=== PATIENT | male | born 1970 | race African-American/Black ===

== ENCOUNTER 2019-06-19 10:00 | Inpatient (IN) | payer OTHER ==
[2019-06-19 10:33] VITALS: BMI 23.9
--- NOTE | 2019-06-19 11:48 | HP ---
CIWA Score Nausea/Vomitin Muscle Tremors: 3 Anxiety: 4-Mod. Anxious/Guarded Agitation: 1-Slight > Activity Paroxysmal Sweats: No Perspiration Orientation: 2-Disoriented Date<2 days Tacttile Disturbances: 2-Mild Itch/Numbness/Burn Auditory Disturbances: 0-None Visual Disturbances: 0-None Headache: 2-Mild CIWA-Ar Total Score: 16 - Admission Criteria OASAS Guidelines: Admission for Medically Managed Detox: Requires at least one of the followin. CIWA greater than 12 2. Seizures within the past 24 hours 3. Delirium tremens within the past 24 hours 4. Hallucinations within the past 24 hours 5. Acute intervention needed for co occurring medical disorder 6. Acute intervention needed for co occurring psychiatric disorder 7. Severe withdrawal that cannot be handled at a lower level of care (continued vomiting, continued diarrhea, abnormal vital signs) requiring intravenous medication and/or fluids 8. Patient presents the following: CIWA greater than 12 Admission Criteria Met: Admission criteria met Admitting History and Physical - Admission History Source: Patient Limitations to Obtaining History: No Limitations - Past Medical History Infectious Disease: Yes: STD's - Smoking History Smoking history: Current every day smoker Have you smoked in the past 12 months: Yes - Alcohol/Substance Use Hx Alcohol Use: Yes History of Substance Use: reports: Cocaine - Social History Usual Living Arrangement: Yes: Other (homeless) Admission ROS [facility] Chief Complaint: I need to make a change, I need to hold onto my money, I lost everything Allergies/Adverse Reactions: Allergies Allergy/AdvReac Type Severity Reaction Status Date / Time No Known Allergies Allergy Verified 06/19/19 10:27 History of Present Illness: 48 yo gentleman here for detox from alcohol - patient states this is the first time he has ever been in treatment. States he has been homeless for fifteen years - staying with various people sometimes, sometimes in retirement, sometimes in street - lost his , job and home. Denies seizures but does have black outs. 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 No emergency visits - came her today through [facility] outreach. We discussed seeing psych while here - he declines - states he wants to be off all drugs before he meets with a psychiatrist, not feeling suciidal. Exam Limitations: No Limitations - Ebola screening Have you traveled outside of the country in the last 21 days: No (N) Have you had contact with anyone from an Ebola affected area: No Do you have a fever: No - Review of Systems Constitutional: Chills, Loss of Appetite, Malaise, Weakness EENT: reports: No Symptoms Reported Respiratory: reports: No Symptoms reported Cardiac: reports: No Symptoms Reported GI: reports: Poor Appetite, Abdominal cramping : reports: Frequency Musculoskeletal: reports: Muscle Pain, Muscle Weakness Integumentary: reports: Dryness Neuro: reports: Headache, Tremors, Weakness Endocrine: reports: No Symptoms Reported Hematology: reports: No Symptoms Reported Psychiatric: reports: Judgement Intact, Mood/Affect Appropiate, Anxious Other Systems: Reviewed and Negative Patient History - Patient Medical History Hx Anemia: Yes (not sure) Hx Asthma: No Hx Chronic Obstructive Pulmonary Disease (COPD): No Hx Cancer: No Hx Cardiac Disorders: No Hx Congestive Heart Failure: No Hx Hypertension: No Hx Hypercholesterolemia: No Hx Pacemaker: No HX Cerebrovascular Accident: No Hx Seizures: No Hx Diabetes: No Hx Gastrointestinal Disorders: No Hx Liver Disease: No Hx Genitourinary Disorders: No Hx Sexually Transmitted Disorders: Yes (hx syphilis - got shots - 30 years ago) Hx Renal Disease (ESRD): No Hx Thyroid Disease: No Hx Human Immunodeficiency Virus (HIV): No Hx Hepatitis C: No Hx Depression: Yes (no meds, hospitalized once many years ago, hx meds years ago but stopped) Hx Suicide Attempt: No Hx Bipolar Disorder: No Hx Schizophrenia: No (? paranoia ) - Patient Surgical History Past Surgical History: No - PPD History Previous Implant?: Yes Documented Results: Negative w/o proof Implanted On Prior R Admission?: No PPD to be Administered?: Yes - Reproductive History Patient is a Female of Child Bearing Age (11 -55 yrs old): No - Smoking Cessation Smoking history: Current every day smoker Have you smoked in the past 12 months: Yes Aproximately how many cigarettes per day: 10 Hx Chewing Tobacco Use: No Initiated information on smoking cessation: Yes 'Breaking Loose' booklet given: 06/19/19 (give on floor) - Substance & Tx. History Hx Alcohol Use: Yes Hx Substance Use: Yes Substance Use Type: Alcohol, Cocaine Hx Substance Use Treatment: No (denies ever having treatment) - Substances abused Alcohol Substance route: Oral Frequency: Daily Amount used: 1 of Scotch Age of first use: 26 Date of last use: 06/18/19 Cocaine Substance route: Inhalation Frequency: Daily Amount used: $300/day Age of first use: 42 Date of last use: 06/18/19 Admission Physical Exam [facility] - Vital Signs Vital Signs: Vital Signs - 24 hr 06/19/19 10:22 Temperature 97.5 F L Pulse Rate 76 Respiratory 16 Rate Blood Pressure 118/67 - Physical General Appearance: Yes: Nourished, Appropriately Dressed, Moderate Distress, Thin, Anxious HEENTM: Yes: EOMI, Hearing grossly Normal, Normocephalic, Normal Voice, Pharynx Normal, Other (missing several teeth) Respiratory: Yes: Normal Breath Sounds, No Respiratory Distress Neck: Yes: No masses,lesions,Nodules Breast: Yes: Breast Exam Deferred Cardiology: Yes: Regular Rhythm, Regular Rate Abdominal: Yes: Flat, Soft Genitourinary: Yes: Frequency Back: Yes: Normal Inspection Musculoskeletal: Yes: full range of Motion, Gait Steady, Muscle weakness Extremities: Yes: Normal Inspection, Normal Range of Motion, Tremors Neurological: Yes: Alert, Normal Mood/Affect, Normal Response Integumentary: Yes: Normal Color, Dry, Warm, Other (healed scar right tibia ( old injury)) Lymphatic: Yes: Within Normal Limits - Diagnostic (1) Alcohol dependence with withdrawal, uncomplicated Current Visit: Yes Status: Acute (2) Cocaine dependence Current Visit: Yes Status: Acute Qualifiers: Substance use status: uncomplicated Qualified Code(s): F14.20 - Cocaine dependence, uncomplicated (3) Nicotine dependence Current Visit: Yes Status: Acute Qualifiers: Nicotine product type: cigarettes Substance use status: uncomplicated Qualified Code(s): F17.210 - Nicotine dependence, cigarettes, uncomplicated (4) Hx of syphilis Current Visit: Yes Status: Suspected Comment: states treated 30 years ago with injections Cleared for Admission [facility] - Detox or Rehab [facility] Level of Care: Medically Managed Detox Regimen/Protocol: Ativan Breathalyzer - Breathalyzer Breathalyzer: 0 Urine Drug Screen - Test Device Lot number: [id number] Expiration date: 02/03/21 - Control Is test valid?: Yes - Results Drug screen NEGATIVE: No Urine drug screen results: KARINA-Cocaine Inpatient Rehab Admission - Rehab Decision to Admit Inpatient rehab admission?: No
[2019-06-19] MEDS ORDERED: MENTHOL/PHENOL 1 EACH UD MM PRN (12:03)
[2019-06-19] MEDS ORDERED: MAGNESIUM CITRATE 300 ML BOTTLE PO PRN (12:03)
[2019-06-19] MEDS ORDERED: LORazepam 1 MG TABLET PO PRN (12:03)
[2019-06-19] MEDS ORDERED: BISMUTH SUBSALICYLATE 524 MG/30 ML UD PO PRN (12:03)
[2019-06-19] MEDS ORDERED: hydrOXYzine PAMOATE 25 MG CAPSULE (FP) PO PRN (12:03)
[2019-06-19] MEDS ORDERED: MELATONIN 5 MG TABLETS PO PRN (12:03)
[2019-06-19] MEDS ORDERED: MAGNESIUM HYDROX 2400MG/30ML ORAL SUSPENSION 30 ML CUP PO PRN (12:03)
[2019-06-19] MEDS ORDERED: IBUPROFEN 400 MG TABLET (FP) PO PRN (12:03)
[2019-06-19] MEDS ORDERED: METHOCARBAMOL 500 MG TABLET PO PRN (12:03)
[2019-06-19] MEDS ORDERED: MAG HYDROX/AL HYDROX/SIMETH 30 ML UNIT-DOSE CUP PO PRN (12:03)
[2019-06-19] MEDS ORDERED: LORazepam 2 MG TABLET PO ONE (12:03)
[2019-06-19] MEDS ORDERED: ACETAMINOPHEN 325 MG TABLET (FP) PO PRN ×2 (12:03)
[2019-06-19] MEDS: LORazepam 2 MG TABLET PO SCH ×2 (17:25→22:35)
[2019-06-19] MEDS: THIAMINE HCL 100 MG TABLET (FP) PO SCH (22:35)
[2019-06-20] MEDS ORDERED: PNEUMOC 13-VAL CONJ-DIP CRM/PF 0.5 ML DISP.SYRIN IM ONE (06:00)
[2019-06-20] MEDS ORDERED: FLU VACCINE QUAD 60 MCG/0.5 ML (MDV 19-20) IM ONE (06:00)
[2019-06-20] MEDS: LORazepam 2 MG TABLET PO SCH ×4 (07:24→22:16)
[2019-06-20] MEDS: NICOTINE POLACRILEX 4 MG GUM BUC PRN (08:03)
--- NOTE | 2019-06-20 10:16 | EKG ---
Test Reason : Blood Pressure : / mmHG Vent. Rate : 060 BPM Atrial Rate : 060 BPM P-R Int : 188 ms QRS Dur : 090 ms QT Int : 408 ms P-R-T Axes : 070 021 004 degrees QTc Int : 408 ms NORMAL SINUS RHYTHM NORMAL ECG NO PREVIOUS ECGS AVAILABLE Confirmed by GLENNA WEEKS, JAMARCUS ([id number]) on 06/20/2019 10:15:34 AM Referred By: Tyrone Pool Confirmed By:JAMARCUS MANZANARES MD
[2019-06-20 11:08] LABS: HEMATOCRIT 40.4 % (35.4-49); HEMOGLOBIN 13.7 GM/dL (11.7-16.9); MCH 31.1 pg (25.7-33.7); MCHC 33.9 g/dl (32.0-35.9); MEAN CELL VOLUME 91.7 fl (80-96); MEAN PLT VOLUME 7.1 fl (7.5-11.1); PLATELET COUNT 451 K/MM3 (134-434); RDW 15.4 % (11.9-15.9); WHITE BLOOD COUNT 7.3 K/mm3 (4.0-10.0)
[2019-06-20 11:19] LABS: ALBUMIN 3.2 g/dl (3.4-5.0); BILIRUBIN,TOTAL 0.4 mg/dL (0.2-1); BLOOD UREA NITROGEN 8.1 mg/dL (7-18); CALCIUM 8.8 mg/dL (8.5-10.1); CREATININE 1.2 mg/dL (0.55-1.3); POTASSIUM 4.3 mmol/L (3.5-5.1); TOT PROT 7.1 g/dl (6.4-8.2)
[2019-06-20 11:25] LABS: PH,URINE 6.5 (5.0-8.0); URINE APPEARANCE CLEAR; URINE BILIRUBIN NEGATIVE (NEGATIVE); URINE COLOR YELLOW; URINE GLUCOSE (UA) NEGATIVE (NEGATIVE); URINE KETONE NEGATIVE (NEGATIVE); URINE LEUK ESTERASE NEGATIVE (NEGATIVE); URINE NITRITE NEGATIVE (NEGATIVE); URINE PROTEIN NEGATIVE (NEGATIVE); URINE UROBILINOGEN 0.2 mg/dL (0.2-1.0)
[2019-06-20] MEDS ORDERED: PNEUMOCOCCAL 23 VACCINE 0.5 ML VIAL IM ONE (12:00)
[2019-06-20] MEDS: PRENATAL VITAMINS W/ FOLIC ACID TABLET (FP) PO SCH (13:08)
--- NOTE | 2019-06-20 15:29 | CONSULT ---
[facility] Psychiatric Consult - Data Date of interview: 06/20/19 Admission source: [facility] Identifying data: Patient refused to see underwriter mortgage loan for psychiatric consultation. Stated " I am tired. Maybe we can talk another time." Please reorder psychiatric consultation if requested by patient.
--- NOTE | 2019-06-20 17:11 | PN ---
[facility] CIWA - CIWA Score Nausea/Vomitin-Mild Nausea/No Vomiting Muscle Tremors: 3 Anxiety: 3 Agitation: 3 Paroxysmal Sweats: 3 Orientation: 0-Oriented Tacttile Disturbances: 0-None Auditory Disturbances: 0-None Visual Disturbances: 0-None Headache: 0-None Present CIWA-Ar Total Score: 13 S Progress Note (SOAP) Subjective: Patient refused to speak with insurance writer Objective: 06/20/19 17:08 Last Vital Signs Temp Pulse Resp BP Pulse Ox 97.3 F L 82 18 116/66 06/20/19 14:27 06/20/19 14:27 06/20/19 14:27 06/20/19 14:27 Laboratory Tests 06/20/19 06/20/19 06/20/19 08:00 08:00 08:00 WBC 7.3 RBC 4.40 Hgb 13.7 Hct 40.4 MCV 91.7 MCH 31.1 MCHC 33.9 RDW 15.4 Plt Count 451 H MPV 7.1 L Sickle Cell Screen Negative Sodium 138 Potassium 4.3 Chloride 104 Carbon Dioxide 27 Anion Gap 8 BUN 8.1 Creatinine 1.2 Est GFR (CKD-EPI)AfAm 83.54 Est GFR (CKD-EPI)NonAf 72.08 Random Glucose 54 L Calcium 8.8 Total Bilirubin 0.4 AST 24 ALT 30 Alkaline Phosphatase 64 Total Protein 7.1 Albumin 3.2 L Urine Color Urine Appearance Urine pH Ur Specific [place] Urine Protein Urine Glucose (UA) Urine Ketones Urine Blood Urine Nitrite Urine Bilirubin Urine Urobilinogen Ur Leukocyte Esterase RPR Titer HIV 1&2 Antibody Screen HIV P24 Antigen 06/20/19 06/20/19 06/20/19 08:00 08:00 08:20 WBC RBC Hgb Hct MCV MCH MCHC RDW Plt Count MPV Sickle Cell Screen Sodium Potassium Chloride Carbon Dioxide Anion Gap BUN Creatinine Est GFR (CKD-EPI)AfAm Est GFR (CKD-EPI)NonAf Random Glucose Calcium Total Bilirubin AST ALT Alkaline Phosphatase Total Protein Albumin Urine Color Yellow Urine Appearance Clear Urine pH 6.5 Ur Specific [place] 1.012 Urine Protein Negative Urine Glucose (UA) Negative Urine Ketones Negative Urine Blood Negative Urine Nitrite Negative Urine Bilirubin Negative Urine Urobilinogen 0.2 Ur Leukocyte Esterase Negative RPR Titer Nonreactive HIV 1&2 Antibody Screen Negative HIV P24 Antigen Negative Labs reviewed: plt 451 (H) Assessment: 06/20/19 17:09 Withdrawal sxs Noted with thrombocytosis Plan: Continue detox Encouraged PO water intake Thrombocytosis: asymptomatic, repeat CBC
[2019-06-20] MEDS: THIAMINE HCL 100 MG TABLET (FP) PO SCH (22:16)
[2019-06-21] MEDS: LORazepam 1 MG TABLET PO SCH ×4 (06:22→22:10)
[2019-06-21] MEDS: PRENATAL VITAMINS W/ FOLIC ACID TABLET (FP) PO SCH (09:58)
--- NOTE | 2019-06-21 12:19 | PN ---
S CIWA - CIWA Score Nausea/Vomitin-No Nausea/No Vomiting Muscle Tremors: 3 Anxiety: 1-Mildly Anxious Agitation: 1-Slight > Activity Paroxysmal Sweats: 2 Orientation: 0-Oriented Tacttile Disturbances: 0-None Auditory Disturbances: 0-None Visual Disturbances: 0-None Headache: 0-None Present CIWA-Ar Total Score: 7 BHS Progress Note (SOAP) Subjective: sweats irritable interrupted sleep Objective: 06/21/19 12:18 Vital Signs Temperature 98.8 F 06/21/19 09:56 Pulse Rate 94 H 06/21/19 09:56 Respiratory Rate 20 06/21/19 09:56 Blood Pressure 110/61 06/21/19 09:56 O2 Sat by Pulse Oximetry (%) Laboratory Tests 06/20/19 06/20/19 06/20/19 08:00 08:00 08:00 WBC 7.3 RBC 4.40 Hgb 13.7 Hct 40.4 MCV 91.7 MCH 31.1 MCHC 33.9 RDW 15.4 Plt Count 451 H MPV 7.1 L Sickle Cell Screen Negative Sodium 138 Potassium 4.3 Chloride 104 Carbon Dioxide 27 Anion Gap 8 BUN 8.1 Creatinine 1.2 Est GFR (CKD-EPI)AfAm 83.54 Est GFR (CKD-EPI)NonAf 72.08 Random Glucose 54 L Calcium 8.8 Total Bilirubin 0.4 AST 24 ALT 30 Alkaline Phosphatase 64 Total Protein 7.1 Albumin 3.2 L Urine Color Urine Appearance Urine pH Ur Specific [place] Urine Protein Urine Glucose (UA) Urine Ketones Urine Blood Urine Nitrite Urine Bilirubin Urine Urobilinogen Ur Leukocyte Esterase RPR Titer HIV 1&2 Antibody Screen HIV P24 Antigen 06/20/19 06/20/19 06/20/19 08:00 08:00 08:20 WBC RBC Hgb Hct MCV MCH MCHC RDW Plt Count MPV Sickle Cell Screen Sodium Potassium Chloride Carbon Dioxide Anion Gap BUN Creatinine Est GFR (CKD-EPI)AfAm Est GFR (CKD-EPI)NonAf Random Glucose Calcium Total Bilirubin AST ALT Alkaline Phosphatase Total Protein Albumin Urine Color Yellow Urine Appearance Clear Urine pH 6.5 Ur Specific [place] 1.012 Urine Protein Negative Urine Glucose (UA) Negative Urine Ketones Negative Urine Blood Negative Urine Nitrite Negative Urine Bilirubin Negative Urine Urobilinogen 0.2 Ur Leukocyte Esterase Negative RPR Titer Nonreactive HIV 1&2 Antibody Screen Negative HIV P24 Antigen Negative aaox3 ambulating no acute distress Assessment: 06/21/19 12:19 withdrawals Plan: continue detox increase fluids
[2019-06-21] MEDS: NICOTINE POLACRILEX 4 MG GUM BUC PRN ×3 (13:36→19:10)
[2019-06-21] MEDS: THIAMINE HCL 100 MG TABLET (FP) PO SCH (22:10)
[2019-06-22] MEDS ORDERED: LORazepam 0.5 MG TABLET PO PRN
[2019-06-22] MEDS: LORazepam 0.5 MG TABLET PO SCH ×4 (06:17→22:02)
[2019-06-22] MEDS: NICOTINE POLACRILEX 4 MG GUM BUC PRN ×4 (07:05→19:47)
[2019-06-22] MEDS: PRENATAL VITAMINS W/ FOLIC ACID TABLET (FP) PO SCH (10:08)
--- NOTE | 2019-06-22 10:22 | PN ---
S CIWA - CIWA Score Nausea/Vomitin-No Nausea/No Vomiting Muscle Tremors: 1-None Visible, but [place] Anxiety: 1-Mildly Anxious Agitation: 1-Slight > Activity Paroxysmal Sweats: No Perspiration Orientation: 0-Oriented Tacttile Disturbances: 0-None Auditory Disturbances: 0-None Visual Disturbances: 0-None Headache: 0-None Present CIWA-Ar Total Score: 3 BHS Progress Note (SOAP) Subjective: sweats Objective: 06/22/19 10:21 Vital Signs Temperature 98.1 F 06/22/19 09:32 Pulse Rate 96 H 06/22/19 09:32 Respiratory Rate 18 06/22/19 09:32 Blood Pressure 91/54 L 06/22/19 09:32 O2 Sat by Pulse Oximetry (%) aaox3 ambulating no acute distress Assessment: 06/22/19 10:21 mild withdrawals Plan: continue detox d/c in am
[2019-06-22] MEDS: THIAMINE HCL 100 MG TABLET (FP) PO SCH (22:02)
[2019-06-23] MEDS ORDERED: LORazepam 0.5 MG TABLET PO ONE (05:00)
--- NOTE | 2019-06-23 09:06 | DS ---
[facility] Detox Discharge Summary Admission Date: 06/19/19 Discharge Date: 06/23/19 - History Present History: Alcohol Dependence, Cocaine Dependence - Physical Exam Results Vital Signs: Vital Signs Temperature 97.7 F 06/23/19 05:00 Pulse Rate 74 06/23/19 05:00 Respiratory Rate 18 06/23/19 05:00 Blood Pressure 115/55 L 06/23/19 05:00 O2 Sat by Pulse Oximetry (%) Pertinent Admission Physical Exam Findings: Vital Signs Temperature 97.7 F 06/23/19 05:00 Pulse Rate 74 06/23/19 05:00 Respiratory Rate 18 06/23/19 05:00 Blood Pressure 115/55 L 06/23/19 05:00 O2 Sat by Pulse Oximetry (%) Laboratory Tests 06/20/19 06/20/19 06/20/19 08:00 08:00 08:00 WBC 7.3 RBC 4.40 Hgb 13.7 Hct 40.4 MCV 91.7 MCH 31.1 MCHC 33.9 RDW 15.4 Plt Count 451 H MPV 7.1 L Sickle Cell Screen Negative Sodium 138 Potassium 4.3 Chloride 104 Carbon Dioxide 27 Anion Gap 8 BUN 8.1 Creatinine 1.2 Est GFR (CKD-EPI)AfAm 83.54 Est GFR (CKD-EPI)NonAf 72.08 Random Glucose 54 L Calcium 8.8 Total Bilirubin 0.4 AST 24 ALT 30 Alkaline Phosphatase 64 Total Protein 7.1 Albumin 3.2 L Urine Color Urine Appearance Urine pH Ur Specific [place] Urine Protein Urine Glucose (UA) Urine Ketones Urine Blood Urine Nitrite Urine Bilirubin Urine Urobilinogen Ur Leukocyte Esterase RPR Titer HIV 1&2 Antibody Screen HIV P24 Antigen 06/20/19 06/20/19 06/20/19 08:00 08:00 08:20 WBC RBC Hgb Hct MCV MCH MCHC RDW Plt Count MPV Sickle Cell Screen Sodium Potassium Chloride Carbon Dioxide Anion Gap BUN Creatinine Est GFR (CKD-EPI)AfAm Est GFR (CKD-EPI)NonAf Random Glucose Calcium Total Bilirubin AST ALT Alkaline Phosphatase Total Protein Albumin Urine Color Yellow Urine Appearance Clear Urine pH 6.5 Ur Specific [place] 1.012 Urine Protein Negative Urine Glucose (UA) Negative Urine Ketones Negative Urine Blood Negative Urine Nitrite Negative Urine Bilirubin Negative Urine Urobilinogen 0.2 Ur Leukocyte Esterase Negative RPR Titer Nonreactive HIV 1&2 Antibody Screen Negative HIV P24 Antigen Negative aaox3 ambulating no acute distress - Treatment Hospital Course: Detox Protocol Followed, Detoxed Safely, Responded well, Discharged Condition Good, Rehab Referral Accepted Patient has Accepted a Rehab Referral to: referred to [facility] inpatient rehab - Medication Discharge Medications: Ambulatory Orders NK [No Known Home Medication] 06/19/19 - Diagnosis (1) Alcohol dependence with withdrawal, uncomplicated Current Visit: Yes Status: Chronic (2) Cocaine dependence Current Visit: Yes Status: Chronic Qualifiers: Substance use status: uncomplicated Qualified Code(s): F14.20 - Cocaine dependence, uncomplicated (3) Nicotine dependence Current Visit: Yes Status: Acute Qualifiers: Nicotine product type: cigarettes Substance use status: uncomplicated Qualified Code(s): F17.210 - Nicotine dependence, cigarettes, uncomplicated (4) Hx of syphilis Current Visit: Yes Status: Suspected - AMA Did Patient Leave Against Medical Advice: No
[2019-06-23] MEDS: NICOTINE POLACRILEX 4 MG GUM BUC PRN (09:39)
[2019-06-23] MEDS: PRENATAL VITAMINS W/ FOLIC ACID TABLET (FP) PO SCH (09:40)
[2019-06-23 14:01] VITALS: BP 117/61; PULSE 68; TEMP 97.9
== END 2019-06-23 12:38 | disposition other institution (70) | DRG 774 ==
LOC: YASAS 10:00 → Y6N 12:08
PROVIDERS: ADMIT Allergy & Immunology; ATTEND Allergy & Immunology
PROC: HZ2ZZZZ Detoxification Services for Substance Abuse Treatment (ICD-10-PCS; principal; 2019-06-19)
DX: F10.230 Alcohol dependence with withdrawal, uncomplicated (principal); F14.20 Cocaine dependence, uncomplicated; F17.210 Nicotine dependence, cigarettes, uncomplicated; D47.3 Essential (hemorrhagic) thrombocythemia; Z87.438 Personal history of other diseases of male genital organs
CPT/HCPCS: 36415; 80053; 81003; 85027; 85660; 86593; 87389; 93005; 93010; G0008; Q2036

== ENCOUNTER 2019-06-23 12:59 | Inpatient (IN) | payer OTHER ==
--- NOTE | 2019-06-23 14:53 | HP ---
DANIELA WEEKS Rehab Assess/Revision - Admission History Admitted to Rehab from: [address] [place] (Pt was discharged from [address] [place] [address] detox today) Date of Admission to Rehab: 06/23/19 - Vital signs Vital Signs: Vital Signs Period Temp Pulse Resp BP Sys/Banda Pulse Ox Last 24 Hr 98.6 F 90 18 119/66 - Findings Detox History & Physical reviewed: Yes Concur with findings: Yes Comments/Additional Findings: Hx Depression: Yes (no meds, hospitalized once many years 35 years ago; hx meds years ago(Celexa) but stopped). Hx Suicide Attempt: No. Declined psych eval on detox admission;. Today, pt also declined to see psych. Inpatient Rehab Admission - Rehab Decision to Admit Inpatient rehab admission?: Yes - Initial Determination Are CD services needed?: Yes Free of communicable disease: Yes Not in need of hospitalization: Yes - Rehab Admission Criteria Previous failed treatment: Yes Poor recovery environment: Yes Comorbidities: Yes Lacks judgement: Yes Patient is meeting Inpatient Rehab admission criteria:: Yes
[2019-06-23] MEDS ORDERED: ACETAMINOPHEN 325 MG TABLET (FP) PO PRN (14:56)
[2019-06-23] MEDS ORDERED: MENTHOL/PHENOL 1 EACH UD MM PRN (14:56)
[2019-06-23] MEDS ORDERED: IBUPROFEN 400 MG TABLET (FP) PO PRN (14:56)
[2019-06-23] MEDS ORDERED: P-EPHED 60MG/TRIPROLIDI 2.5MG TABLET PO PRN (14:56)
[2019-06-23] MEDS ORDERED: LOPERAMIDE HCL 2 MG CAPSULE PO PRN (14:56)
[2019-06-23] MEDS ORDERED: MAGNESIUM CITRATE 300 ML BOTTLE PO PRN (14:56)
[2019-06-23] MEDS ORDERED: guaiFENesin 200 MG/10 ML 10 ML UNIT-DOSE CUPS PO PRN (14:56)
[2019-06-23] MEDS ORDERED: MAGNESIUM HYDROX 2400MG/30ML ORAL SUSPENSION 30 ML CUP PO PRN (14:56)
[2019-06-23] MEDS ORDERED: MAG HYDROX/AL HYDROX/SIMETH 30 ML UNIT-DOSE CUP PO PRN (14:56)
[2019-06-23] MEDS ORDERED: hydrOXYzine PAMOATE 50 MG CAPSULE (FP) PO PRN (14:56)
[2019-06-23] MEDS: NICOTINE POLACRILEX 4 MG GUM BUC PRN ×3 (15:55→21:42)
[2019-06-23] MEDS: THIAMINE HCL 100 MG TABLET (FP) PO SCH (21:42)
[2019-06-23] MEDS: MELATONIN 5 MG TABLETS PO PRN (21:42)
[2019-06-24] MEDS: NICOTINE POLACRILEX 4 MG GUM BUC PRN ×3 (08:59→20:00)
[2019-06-24] MEDS: PRENATAL VITAMINS W/ FOLIC ACID TABLET (FP) PO SCH (10:47)
[2019-06-24] MEDS: THIAMINE HCL 100 MG TABLET (FP) PO SCH (21:44)
[2019-06-25] MEDS: NICOTINE POLACRILEX 4 MG GUM BUC PRN ×3 (06:47→21:39)
[2019-06-25] MEDS: PRENATAL VITAMINS W/ FOLIC ACID TABLET (FP) PO SCH (10:27)
[2019-06-25] MEDS: THIAMINE HCL 100 MG TABLET (FP) PO SCH (21:38)
[2019-06-26] MEDS: PRENATAL VITAMINS W/ FOLIC ACID TABLET (FP) PO SCH (10:44)
[2019-06-26] MEDS: NICOTINE POLACRILEX 4 MG GUM BUC PRN ×3 (10:44→21:38)
[2019-06-26] MEDS: THIAMINE HCL 100 MG TABLET (FP) PO SCH (21:38)
[2019-06-27] MEDS: PRENATAL VITAMINS W/ FOLIC ACID TABLET (FP) PO SCH (09:42)
[2019-06-27] MEDS: NICOTINE POLACRILEX 4 MG GUM BUC PRN ×2 (09:42→21:39)
--- NOTE | 2019-06-27 17:37 | CONSULT ---
[facility] Psychiatric Consult - Data Date of interview: 06/27/19 Admission source: [facility] Identifying data: [employer] approached patient for psychiatric consultation. Patient stated, " I don't need to see you. I'm fine. I don't see a psychiatrist. " Nursing staff informed. Psychiatric consultation refused.
[2019-06-27] MEDS: THIAMINE HCL 100 MG TABLET (FP) PO SCH (21:39)
[2019-06-28] MEDS: NICOTINE POLACRILEX 4 MG GUM BUC PRN ×3 (07:20→21:24)
[2019-06-28] MEDS: PRENATAL VITAMINS W/ FOLIC ACID TABLET (FP) PO SCH (10:40)
[2019-06-28] MEDS: THIAMINE HCL 100 MG TABLET (FP) PO SCH (21:24)
[2019-06-29] MEDS: NICOTINE POLACRILEX 4 MG GUM BUC PRN ×4 (06:23→21:41)
[2019-06-29] MEDS: PRENATAL VITAMINS W/ FOLIC ACID TABLET (FP) PO SCH (10:33)
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
[2019-06-29] MEDS: CITALOPRAM HYDROBROMIDE 10 MG TABLET (FP) PO SCH (15:35)
[2019-06-29] MEDS: GABAPENTIN 100 MG CAPSULE (FP) PO SCH (21:40)
[2019-06-29] MEDS: THIAMINE HCL 100 MG TABLET (FP) PO SCH (21:40)
[2019-06-29] MEDS: QUEtiapine FUMARATE 50 MG TABLET PO SCH (21:40)
[2019-06-30] MEDS: GABAPENTIN 100 MG CAPSULE (FP) PO SCH ×3 (06:42→21:40)
[2019-06-30] MEDS: NICOTINE POLACRILEX 4 MG GUM BUC PRN ×3 (06:42→21:40)
[2019-06-30] MEDS: PRENATAL VITAMINS W/ FOLIC ACID TABLET (FP) PO SCH (10:32)
[2019-06-30] MEDS: CITALOPRAM HYDROBROMIDE 10 MG TABLET (FP) PO SCH (10:32)
[2019-06-30] MEDS: QUEtiapine FUMARATE 50 MG TABLET PO SCH ×2 (10:32→21:40)
[2019-06-30] MEDS: THIAMINE HCL 100 MG TABLET (FP) PO SCH (21:40)
[2019-07-01] MEDS: GABAPENTIN 100 MG CAPSULE (FP) PO SCH ×3 (06:32→21:35)
[2019-07-01] MEDS: NICOTINE POLACRILEX 4 MG GUM BUC PRN ×4 (06:32→20:22)
[2019-07-01] MEDS: CITALOPRAM HYDROBROMIDE 10 MG TABLET (FP) PO SCH (10:14)
[2019-07-01] MEDS: QUEtiapine FUMARATE 50 MG TABLET PO SCH ×2 (10:14→21:35)
[2019-07-01] MEDS: PRENATAL VITAMINS W/ FOLIC ACID TABLET (FP) PO SCH (10:14)
[2019-07-01] MEDS: THIAMINE HCL 100 MG TABLET (FP) PO SCH (21:35)
[2019-07-02] MEDS: GABAPENTIN 100 MG CAPSULE (FP) PO SCH ×3 (06:41→21:46)
[2019-07-02] MEDS: PRENATAL VITAMINS W/ FOLIC ACID TABLET (FP) PO SCH (10:31)
[2019-07-02] MEDS: QUEtiapine FUMARATE 50 MG TABLET PO SCH ×2 (10:31→21:46)
[2019-07-02] MEDS: CITALOPRAM HYDROBROMIDE 10 MG TABLET (FP) PO SCH (10:32)
[2019-07-02] MEDS: NICOTINE POLACRILEX 4 MG GUM BUC PRN ×4 (10:33→21:45)
[2019-07-02] MEDS: THIAMINE HCL 100 MG TABLET (FP) PO SCH (21:46)
[2019-07-03] MEDS: NICOTINE POLACRILEX 4 MG GUM BUC PRN ×4 (06:15→21:40)
[2019-07-03] MEDS: GABAPENTIN 100 MG CAPSULE (FP) PO SCH ×3 (06:15→21:39)
[2019-07-03] MEDS: QUEtiapine FUMARATE 50 MG TABLET PO SCH (10:47)
[2019-07-03] MEDS: PRENATAL VITAMINS W/ FOLIC ACID TABLET (FP) PO SCH (10:47)
[2019-07-03] MEDS: CITALOPRAM HYDROBROMIDE 10 MG TABLET (FP) PO SCH (10:48)
--- NOTE | 2019-07-03 16:00 | PN ---
[facility] Progress Note Note: Psychiatry Attending's note (follow-up) : Patient seen. Mr Early is noted as cooperative and well-related. He complains of insomnia and requested increase of seroquel dose. Patient reports mild dysphoria and irritability. However, feels more controlled. Denies suicidal or homicidal ideation, intent or plan. Cognition remains intact. Noted as well groomed, ambulatory and steady (gait). No report of adverse effects. Moderately improved. Intervention : Seroquel is increased to 100 mg po bid Gabapentin is now raised to 200 mg po tid With the patient's informed consent (verbal). Psychiatry-Liaison will follow.
[2019-07-03] MEDS: QUEtiapine FUMARATE 100 MG TABLET (FP) PO SCH (21:39)
[2019-07-03] MEDS: THIAMINE HCL 100 MG TABLET (FP) PO SCH (21:39)
[2019-07-04] MEDS: GABAPENTIN 100 MG CAPSULE (FP) PO SCH ×3 (07:02→21:44)
[2019-07-04] MEDS: NICOTINE POLACRILEX 4 MG GUM BUC PRN ×4 (07:03→21:44)
[2019-07-04] MEDS: QUEtiapine FUMARATE 100 MG TABLET (FP) PO SCH ×2 (10:15→21:43)
[2019-07-04] MEDS: PRENATAL VITAMINS W/ FOLIC ACID TABLET (FP) PO SCH (10:15)
[2019-07-04] MEDS: CITALOPRAM HYDROBROMIDE 10 MG TABLET (FP) PO SCH (10:15)
[2019-07-04] MEDS: THIAMINE HCL 100 MG TABLET (FP) PO SCH (21:44)
[2019-07-05] MEDS: GABAPENTIN 100 MG CAPSULE (FP) PO SCH ×3 (06:34→21:35)
[2019-07-05] MEDS: NICOTINE POLACRILEX 4 MG GUM BUC PRN ×4 (06:35→21:37)
[2019-07-05] MEDS: QUEtiapine FUMARATE 100 MG TABLET (FP) PO SCH (10:44)
[2019-07-05] MEDS: CITALOPRAM HYDROBROMIDE 10 MG TABLET (FP) PO SCH (10:44)
[2019-07-05] MEDS: PRENATAL VITAMINS W/ FOLIC ACID TABLET (FP) PO SCH (10:44)
--- NOTE | 2019-07-05 15:47 | PN ---
Psychiatric Progress Note Vital Signs: Vital Signs Period Temp Pulse Resp BP Sys/Banda Pulse Ox Last 24 Hr 97.9 F 66 18-18 103/59 Date of Session: 07/05/19 Chief Complaint:: " I still have difficulty sleeping at night. Otherwise, I feel better." HPI: This is a follow-up visit to evaluate patient's response to his current regimen of medications. Mr Early has been admitted to [address] to address YULY issues (alcohol, cocaine) co-morbd with MMD + impulse control disorder and (possibly) post-traumatic stress disorder. Patient has been started on new medications (gabapentin, quetiapine) since 06/29/19. ROS: Unremarkable. Current Medications: Active Medications Generic Name Dose Route Start Last Admin Trade Name Freq PRN Reason Stop Dose Admin Acetaminophen 650 mg 06/23/19 14:56 Tylenol - PO Q4H PRN FEVER Al Hydroxide/Mg Hydroxide 30 ml 06/23/19 14:56 Mylanta Oral Suspension - PO Q6H PRN DYSPEPSIA Citalopram Hydrobromide 10 mg 06/29/19 15:05 07/05/19 10:44 Celexa - PO 10 mg DAILY ISRAEL Administration Eucalyptus/Menthol/Phenol/Sorbitol 1 each 06/23/19 14:56 Cepastat Lozenge - MM Q4H PRN SORE THROAT Gabapentin 200 mg 07/03/19 22:00 07/05/19 14:25 Neurontin - PO 200 mg TID ISRAEL Administration Guaifenesin 10 ml 06/23/19 14:56 Robitussin - PO Q6H PRN COUGH Hydroxyzine Pamoate 50 mg 06/23/19 14:56 Vistaril - PO Q4H PRN AGITATION Ibuprofen 400 mg 06/23/19 14:56 Motrin - PO Q6H PRN Pain Level 4-6 Loperamide HCl 4 mg 06/23/19 14:56 Imodium - PO Q6H PRN DIARRHEA Magnesium Citrate 300 ml 06/23/19 14:56 Citroma - PO Q48H PRN CONSTIPATION Magnesium Hydroxide 30 ml 06/23/19 14:56 Milk Of Magnesia - PO DAILY PRN CONSTIPATION Melatonin 5 mg 06/23/19 22:00 06/23/19 21:42 Melatonin PO 5 mg HS PRN Administration INSOMNIA Nicotine Polacrilex 4 mg 06/23/19 14:56 07/05/19 14:26 Nicorette Gum - BUC 4 mg Q2H PRN Administration NICOTINE REPLACEMENT RX Multivit/Folic Acid/Iron 1 tab 06/24/19 10:00 07/05/19 10:44 Vitamins (Sjr) - PO 1 tab DAILY ISRAEL Administration Pseudoephedrine/Triprolidine 1 combo 06/23/19 14:56 Actifed - PO TID PRN NASAL CONGESTION Quetiapine Fumarate 100 mg 07/03/19 22:00 07/05/19 10:44 Seroquel - PO 100 mg BID ISRAEL Administration Thiamine HCl 100 mg 06/23/19 22:00 07/04/19 21:44 Vitamin B1 - PO 100 mg HS ISRAEL Administration Medication(s) Change(s): Optimization of doses : citalopram is raised to 20 mg po daily + seroquel is now 100 mg po daily + 200 mg po hs. Gabapentin remains at 200 mg po tid. Side effects/benefits of each molecule are re-discussed with the patient. Mr Early has expressed his agreement with this plan of care. Medications are reported as well tolerated. Patient has given his informed consent (verbal) to MD. Case discussed with nurse Ms Zelaya. EKG ordered. Current Side Effect: No Lab tests ordered: No Lab tests reviewed: Yes Provider note:: Chart reviewed. Briefing with nurse Emily Zelaya. Met with the patient. Mr Early continues to be approachable, pleasant and controlled. He is found lying in bed, asleep but easily arousable. Patient reports feeling tired because of poor sleep at night. He has, himself, requested to get more seroquel at bedtime. He endorses good tolerability to his medications. No report of acting out behavior or outbursts. Patient is seen as neatly groomed and appropriate. Appetite is endorsed as robust. Mr Early remains focused on his goal to maintain sobriety, " stay out of trouble by minding my own business ", avoid confrontational situations, concentrate on getting housing (he envisions affiliation with [facility]) and keep adherence to psychiatric OPD care. Good, encouraging progress. Mental status is stable. Refer to MSE report for details. Patient is at baseline. Total face to face time:: 25 Mental Status Exam - Mental Status Exam Alert and Oriented to: Time, Place, Person Cognitive Function: Good Patient Appearance: Well Groomed Mood: Withdrawn (found resting in bed), Hopeful Affect: Appropriate, Normal Range Patient Behavior: Appropriate, Cooperative Speech Pattern: Clear, Appropriate Voice Loudness: Normal Thought Process: Intact, Goal Oriented Thought Disorder: Not Present Hallucinations: Denies Suicidal Ideation: Denies Homicidal Ideation: Denies Insight/Judgement: Fair Sleep: Poorly, Difficulty falling asleep Appetite: Good Gait/Station: Normal Psychiatric Treatment Plan - Problem List (1) Alcohol use disorder Current Visit: Yes Comment: . (2) Cocaine dependence Current Visit: Yes Qualifiers: Substance use status: uncomplicated Qualified Code(s): F14.20 - Cocaine dependence, uncomplicated Comment: . (3) Nicotine dependence Current Visit: Yes Qualifiers: Nicotine product type: cigarettes Substance use status: uncomplicated Qualified Code(s): F17.210 - Nicotine dependence, cigarettes, uncomplicated Comment: . (4) Substance induced mood disorder Current Visit: Yes Comment: . (5) Impulse control disorder, unspecified Current Visit: Yes Comment: . (6) History of depression Current Visit: Yes Comment: . (7) Post traumatic stress disorder (PTSD) Current Visit: Yes Comment: .Suspected. (8) Insomnia Current Visit: Yes Comment: .
[2019-07-05] MEDS: THIAMINE HCL 100 MG TABLET (FP) PO SCH (21:35)
[2019-07-05] MEDS: QUEtiapine FUMARATE 200 MG TABLET PO SCH (21:36)
[2019-07-06] MEDS: NICOTINE POLACRILEX 4 MG GUM BUC PRN ×4 (06:34→21:42)
[2019-07-06] MEDS: GABAPENTIN 100 MG CAPSULE (FP) PO SCH ×3 (06:34→21:41)
--- NOTE | 2019-07-06 10:14 | EKG ---
Test Reason : Blood Pressure : / mmHG Vent. Rate : 076 BPM Atrial Rate : 076 BPM P-R Int : 178 ms QRS Dur : 088 ms QT Int : 376 ms P-R-T Axes : 052 008 000 degrees QTc Int : 423 ms NORMAL SINUS RHYTHM NORMAL ECG WHEN COMPARED WITH ECG OF 19-JUN-2019 13:29, NO SIGNIFICANT CHANGE WAS FOUND Confirmed by MD Segura Edward ([id number]) on 07/06/2019 10:14:07 AM Referred By: Confirmed By:Donny Segura MD
[2019-07-06] MEDS: QUEtiapine FUMARATE 100 MG TABLET (FP) PO SCH (10:33)
[2019-07-06] MEDS: PRENATAL VITAMINS W/ FOLIC ACID TABLET (FP) PO SCH (10:33)
[2019-07-06] MEDS: CITALOPRAM HYDROBROMIDE 20 MG TABLET (FP) PO SCH (10:33)
[2019-07-06] MEDS: THIAMINE HCL 100 MG TABLET (FP) PO SCH (21:41)
[2019-07-06] MEDS: QUEtiapine FUMARATE 200 MG TABLET PO SCH (21:41)
[2019-07-07] MEDS: GABAPENTIN 100 MG CAPSULE (FP) PO SCH ×3 (06:49→21:32)
[2019-07-07] MEDS: NICOTINE POLACRILEX 4 MG GUM BUC PRN ×3 (06:50→21:33)
[2019-07-07] MEDS: PRENATAL VITAMINS W/ FOLIC ACID TABLET (FP) PO SCH (10:27)
[2019-07-07] MEDS: QUEtiapine FUMARATE 100 MG TABLET (FP) PO SCH (10:27)
[2019-07-07] MEDS: CITALOPRAM HYDROBROMIDE 20 MG TABLET (FP) PO SCH (10:27)
--- NOTE | 2019-07-07 15:44 | DS ---
[facility] Rehab Discharge Summary - [facility] Rehab Discharge Summary Admission Date: 06/23/19 Discharge Date: 07/08/19 - History Present History: Alcohol dependence, Cocaine dependence Additional Comments: Pt os a 48 y/o male with a hx of YULY admitted to rehab and scheduled to discharge on 07/08/19. Pt has been referred to [facility] for after[facility]. pt has primary care with [facility], on [address] [place] [address] . Pertinent Past History: PTSD Hx Poor impulse control - Discharge Physical Exam Vital Signs: Vital Signs Temperature 97.9 F 07/07/19 07:18 Pulse Rate 83 07/07/19 07:18 Respiratory Rate 18 07/07/19 07:18 Blood Pressure 107/54 L 07/07/19 07:18 O2 Sat by Pulse Oximetry (%) Pertinent Admission Physical Exam Findings: Status Unchanged from admission - Treatment Discharge Condition: Discharge condition good Hospital Course: Rehabilitated safely - Medication Discharge Medications: Ambulatory Orders Citalopram Hydrobromide [Celexa -] 20 mg PO DAILY #30 tablet 07/08/19 Gabapentin [Neurontin -] 200 mg PO TID #180 capsule 07/08/19 Quetiapine Fumarate [Seroquel -] 100 mg PO DAILY #30 tablet 07/08/19 Quetiapine Fumarate [Seroquel -] 200 mg PO HS #30 tablet 07/08/19 - Medication-Assisted Treatment (MAT) Medication-Assisted Treatment (MAT): No - Discharge Instructions Diet, activity, other medical instructions: Diet:Regular Activity: oob ambulating with steady gait Other medical instructions:follow up with aftercare as scheduled. Follow up with primary care at [place], [place]. - Diagnosis (1) Alcohol use disorder Status: Chronic (2) Cocaine dependence Status: Chronic Qualifiers: Substance use status: uncomplicated Qualified Code(s): F14.20 - Cocaine dependence, uncomplicated (3) Nicotine dependence Status: Chronic Qualifiers: Nicotine product type: cigarettes Substance use status: uncomplicated Qualified Code(s): F17.210 - Nicotine dependence, cigarettes, uncomplicated (4) Hx of syphilis Status: Suspected - Follow-up Referral Minutes to complete discharge: 20 - AMA Did Patient Leave Against Medical Advice: No
[2019-07-07] MEDS: QUEtiapine FUMARATE 200 MG TABLET PO SCH (21:32)
[2019-07-07] MEDS: THIAMINE HCL 100 MG TABLET (FP) PO SCH (21:33)
[2019-07-07] MEDS: MELATONIN 5 MG TABLETS PO PRN (21:33)
[2019-07-08] MEDS: GABAPENTIN 100 MG CAPSULE (FP) PO SCH (06:29)
[2019-07-08] MEDS: NICOTINE POLACRILEX 4 MG GUM BUC PRN ×2 (06:30→09:39)
[2019-07-08 07:20] VITALS: BP 119/72; PULSE 74; TEMP 97.8
--- NOTE | 2019-07-08 08:56 | PN ---
S Progress Note Note: Psychiatric nurse practitioner note: Patient scheduled for discharge today. A 30 day prescription of Celexa 20mg + Seroquel 200mg HS + Seroquel 100mg daily + Gabapentin 200mg TID was electronically sent to [facility] at [address] [place] [address].
[2019-07-08] MEDS: CITALOPRAM HYDROBROMIDE 20 MG TABLET (FP) PO SCH (09:39)
[2019-07-08] MEDS: QUEtiapine FUMARATE 100 MG TABLET (FP) PO SCH (09:39)
[2019-07-08] MEDS: PRENATAL VITAMINS W/ FOLIC ACID TABLET (FP) PO SCH (09:39)
--- NOTE | 2019-07-08 14:47 | PN ---
S Progress Note Note: Pt discharged today as schedule. Vital Signs - 24 hr 07/08/19 07/08/19 07/08/19 00:30 03:30 07:19 Temperature 97.8 F Pulse Rate 74 Respiratory 18 16 18 Rate Blood Pressure 119/72 Alert o x 3,denies s/h/i nad oob ambulating with steady gait A/P Medically stable D/C pt today d/w pt to follow up with [facility] aftercare and primary care as recommended.
== END 2019-07-08 10:15 | disposition home or self-care (01) | DRG 772 ==
LOC: YASAS 12:59 → Y5N 13:00
PROVIDERS: ADMIT Neuromusculoskeletal Medicine & OMM; ATTEND Neuromusculoskeletal Medicine & OMM
PROC: HZ42ZZZ Group Counseling for Substance Abuse Treatment, Cognitive-Behavioral (ICD-10-PCS; principal; 2019-06-23)
DX: F10.20 Alcohol dependence, uncomplicated (principal); F14.20 Cocaine dependence, uncomplicated; F17.210 Nicotine dependence, cigarettes, uncomplicated; F19.24 Other psychoactive substance dependence with psychoactive substance-induced mood disorder; F43.10 Post-traumatic stress disorder, unspecified; F63.9 Impulse disorder, unspecified; G47.00 Insomnia, unspecified; M19.90 Unspecified osteoarthritis, unspecified site; Z87.438 Personal history of other diseases of male genital organs
CPT/HCPCS: 93005; 93010